=== PATIENT | female | born 1980 | race Two or more races ===

== ENCOUNTER 2019-10-27 21:00 | Emergency (ER) | payer MEDICAID ==
[~2019-10-27] VITALS: Ht 162.6 cm; Wt 77.0 kg
[2019-10-27] MEDS ORDERED: ALBUTEROL (0.083%) 2.5MG/3ML NEB HHN STA (21:28)
[2019-10-27] MEDS ORDERED: IPRATROPIUM BROMIDE (0.02%) 0.5MG/2.5ML NEB HHN STA (21:28)
[2019-10-27] MEDS ORDERED: METHYLPREDNISOLONE SOD SUCC 125 MG/2 ML VIAL IV STA (21:28)
[2019-10-27] MEDS ORDERED: MAGNESIUM 2 G PREMIX 50 ML IV ONE (21:30)
[2019-10-28 00:15] VITALS: BP 146/87
[2019-10-28] MEDS ORDERED: FENTANYL CITRATE/PF 50MCG/ML 2ML VIAL ONE (13:28)
[2019-10-28] MEDS ORDERED: PROPOFOL 200MG/20ML VIAL IV ONE (13:29)
[2019-10-28] MEDS ORDERED: DIPHENHYDRAMINE 50MG/ML VIAL ONE (13:29)
[2019-10-28] MEDS ORDERED: MIDAZOLAM HCL 2 MG/2 ML VIAL ONE ×3 (13:29→13:54)
[2019-10-28] MEDS ORDERED: LIDOCAINE HCL/PF 1% 10 MG/ML 5ML VIAL ONE (13:39)
== END 2019-10-28 01:00 | disposition home or self-care (01) ==
LOC: ER 21:00
DX: J20.9 Acute bronchitis, unspecified (principal); R06.02 Shortness of breath; R06.2 Wheezing; R00.0 Tachycardia, unspecified; Z88.0 Allergy status to penicillin; Z88.5 Allergy status to narcotic agent; Z88.1 Allergy status to other antibiotic agents
CPT/HCPCS: 71045; 93005; 94644; 96365; 96375; 99285; J1200; J2250; J2704; J2930; J3010; J3475; J3490; J7610; Z7610